=== PATIENT | female | born 1950 | race Caucasian/White ===

== ENCOUNTER 2017-06-21 06:12 | Inpatient (IN) | payer OTHER, MEDICARE ==
[2017-06-21] VITALS (15 sets, daily range): BP systolic 101–141; BP diastolic 50–75
[~2017-06-21] VITALS: Ht 154.9 cm; Wt 71.2 kg
[~2017-06-21 06:12] MED LIST: AMITRIPTYLINE 550 MG PO; AMITRIPTYLINE10 MG PO; ASPIRIN 81MG TA81 MG PO; ATORVASTATIN CA10 M1 PO; CALCIUM + D 6001 TAB PO; CLARITIN 10MG T10 MG PO; Cranberry400 MG PO; GABAPENTIN100 M1 PO; GABAPENTIN100 MG PO; HYDROCHLOROTHIA25 M1 PO; LISINOPRIL2.5 M1 PO; LORTAB 5/3251 TAB PO; METFORMIN 500M500 M1 PO; METFORMIN 500M500 MG PO; METOPROLOL 25 M25 MG PO; MULTIVITAMIN1 TA1 PO; PAXIL10 MG PO; PAXIL20 MG PO; PRAVACHOL20 MG PO; REQUIP 1 MG TABL1 MG PO; REQUIP2 MG PO; ROPINIROLE HYDRO1 M1 PO; TYLENOL WITH CO1 TA1 PO; VICODIN 5/500 T1 TAB PO; VOLTAREN75 MG PO
--- NOTE | 2017-06-21 09:34 | Anesthesia Record ---
Anesthesia Record Part I Total IV fluids: 90 EBL (ml): 20 Urine Output: 30 B/P: 126/71 % SaO2: 93 Pulse: 87 Resps: 15 Temp: 97 Patient is: Stable Stable to PACU at: 0927 at 0915
--- NOTE | 2017-06-21 09:35 | Anesthesia Record ---
Anesthesia Record Part II Discharge time: 956 Destination: Same day surgery PACU nurse assessment review? Yes Patient is: Stable Anesthesia complications? No at 0919
--- NOTE | 2017-06-21 12:59 | Operative Note ---
Procedure/Operative Record Date of Procedure: 06/21/17 Pre-op diagnosis: PCL tear, LEFT knee Status post LEFT total knee arthroplasty Post-op diagnosis: Same Procedure performed: revision knee arthroplasty, LEFT knee, polyethylene exchange only Surgeon: Devang Reyes Anesthesia: Gen. anesthetic plus regional block Indications: The patient is a 66-year-old female who is status post LEFT total knee arthroplasty several years ago with a cruciate retaining system by [employer]. She fell in December and incurred a trimalleolar LEFT ankle fracture and also a tear of her posterior cruciate ligament. She has continued to have instability secondary to the posterior cruciate ligament tear has improved significantly with wear of a posterior cruciate ligament stabilizing brace. Polyethylene exchange to a dish type tray to improve stabilization is indicated to improve ambulation, improved stabilization of the knee, and decreased risk of falling. Findings: Intraoperative examination under anesthesia showed a grossly unstable knee to posterior drawer testing consistent with a complete rupture of the posterior cruciate ligament. The total knee components were solidly attached and no evidence of loosening is present. Description of procedure: The patient was taken to the operating room and placed in the supine position. She had previously received a regional block. Gen. anesthesia was administered and the LEFT leg prepped and draped first with alcohol and then a formal preparation with chlorhexidine conducted. The entire team wore isolation suits. Room traffic was controlled. Preoperative antibiotics were given. Ioban was used to seal the operative site after marking pen had been used to outline the previous incision. The limb was exsanguinated and the tourniquet inflated to 325 mmHg. Tourniquet time was approximately one hour 15 minutes. Please see anesthesia or nursing notes for exact time. The knee was flexed and an incision made through the skin with a surgical knife. We carried this through the subcutaneous tissues but stops short of the extensor mechanism. A curvilinear incision was made to allow a medial parapatella approach. We marked the extensor mechanism to augment later closure. We resected scar tissue is needed and slid the patella medially flexing the knee and exposing the polyethylene. The polyethylene was removed and its size confirmed to be a 1-2 by 11 millimeter thick cruciate retaining polyethylene. We then irrigated all components and checked for loosening. All were found to be stable. We then selected the same size polyethylene in a dish type and placed it and seated it in position visually checking all edges accessible including the dovetails. The product rep was satisfied the polyethylene had seated as well. We cycled the knee through flexion and extension several times. This ensured polyethylene remain seated and fit patient had ensued. The patella button tracked nicely as well. We then irrigated and began closure using #1 Vicryl [id number] and running sutures for the extensor mechanism and 2-0 Vicryl for the subcutaneous tissue. A subcuticular 4-0 Monocryl was used for the skin followed by Dermabond, Steri-Strips, and dressings. The patient was then awakened and transported to the recovery room in satisfactory condition EBL (ml): 20 Implant: Polyethylene tibial insert, [employer] nephew, size 1-2 by 11 mm thick. This is a deep dish posterior cruciate ligament augmenting polyethylene. The other components which were not removed or exchanged our the cemented femur and tibial components as well as the polyethylene button. All components by [employer] nephew Complications: None Specimens: None at 0368
--- NOTE | 2017-06-21 23:00 | ACUTE CARE PROGRESS NOTE ---
Progress note Date: 06/21/17 Assessment: Post Op Check approx 2029....Pt awake, denies pain or distress. absent sensation left foot from regional block. Dressing intact. No evident complications VSS AF. Pedal pulses intact both feet. Impression: 1. Status post revision of total replacement of left knee Plan: anticipate discharge in a.m. at 4021
[2017-06-22 00:19] VITALS: BP 127/63
[2017-06-22 04:00] VITALS: BP 124/61
[2017-06-22 06:54] LABS: HEMOGLOBIN 13.3 g/dL (12.2-16.2); LYMPH # 2.7 K/mm3 (0.7-4.5); LYMPH % 24.7 % (10-50.0)
[2017-06-22 08:00] VITALS: BP 113/56
[2017-06-22 12:35] VITALS: BP 135/73
[2017-06-22 16:27] VITALS: BP 151/75
[2017-06-22 19:58] VITALS: BP 144/73
[2017-06-23 00:10] VITALS: BP 155/73
[2017-06-23 04:13] VITALS: BP 137/91
[2017-06-23 08:30] VITALS: BP 145/82
--- NOTE | 2017-06-23 13:19 | ACUTE CARE PROGRESS NOTE ---
Progress note Date: 06/23/17 Assessment: Stable status post revision. Much better pain control this morning. Dressing clean and dry. Neurovascular status intact. Vital signs stable afebrile. Labs within normal limits. Impression: 1. Status post revision of total replacement of left knee Plan: We will anticipate discharge later today if adequate pain control achieved. at 8556
[2017-06-23 16:30] VITALS: BP 181/95
--- NOTE | 2017-06-23 17:59 | ACUTE CARE PROGRESS NOTE ---
Progress note Date: 06/23/17 Assessment: still having significant pain requiring morphine IV. Dressing intact. Neuro intact. VSS AF. Impression: 1. Status post revision of total replacement of left knee Plan: Will keep overnight and attempt to transition to po Lortab tomorrow. Pt with inadequate pain control to be discharged today. at 0087
[2017-06-23 19:30] VITALS: BP 177/91
[2017-06-23 19:42] VITALS: BP 177/91
[2017-06-24 04:08] VITALS: BP 156/79
[2017-06-24 08:00] VITALS: BP 144/70
[2017-06-24 08:35] VITALS: BP 144/70
[2017-06-24] MEDS ORDERED: ASPIRIN325 M1 PO (09:49)
[2017-06-24] MEDS ORDERED: HYDROCODONE/APA1 TA8 PO (09:50)
[2017-06-24] MEDS ORDERED: CEPHALEXIN500 M3 PO (09:51)
--- NOTE | 2017-06-24 15:20 | ACUTE CARE PROGRESS NOTE ---
Progress note Date: 06/24/17 Assessment: feels much better.....incision clean/dry....sensory intact pedal pulses 2+ Impression: 1. Status post revision of total replacement of left knee Plan: home today at 6315
--- NOTE | 2017-06-24 15:24 | Discharge Summary Report ---
General Admit date: 07/19/17 Discharge date: 06/24/17 Admission Dx: pcl tear left Discharge Dx: same Hospital course: improved....noted significant pain after block wore off,now on po meds Condition at discharge: improved Problem List Medical Problems Ankle fracture, right Atrial tachycardia Closed bimalleolar fracture First degree alvarez of multiple sites Fracture of ankle, trimalleolar, left, closed Hypertension Post-operative pain Rib contusion Second degree alvarez of multiple sites Surgical Problems Status post revision of total replacement of left knee Allergies Coded Allergies: Penicillins (I-HIVES 06/21/17) promethazine ("MAKES CRAZY" EXACERBATES RLS 06/21/17) Med Rec DC summary Medications Reported Medications HYDROCHLOROTHIAZIDE (Hydrochlorothiazide) 25 MG PO DAILY PAROXETINE (Paroxetine HCl) 20 MG PO DAILY Atorvastatin Calcium 10 MG PO QHS #30 TAB ROPINIROLE HCL (Requip 1 Mg) 1 MG PO BID METFORMIN HCL (Metformin 500MG) 1,000 MG PO QAM METFORMIN HCL (Metformin 500MG) 1,500 MG PO QHS Gabapentin (Gabapentin 100MG) 300 MG PO QHS #360 CAPSULE Gabapentin (Gabapentin 100MG) 200 MG PO QAM Amitriptyline Hcl (Amitriptyline) 50 MG PO QHS #90 Discontinued Reported Medications ASPIRIN (Aspirin) 81 MG PO DAILY at 8578
[2017-06-24 16:00] VITALS: BP 144/70
== END 2017-06-24 16:05 | disposition home or self-care (01) | DRG 489 ==
LOC: 2ND 06:12 → EDSTATUS 07:30 → SDC 07:30 → 2ND 10:28
PROVIDERS: Orthopaedic Surgery
PROC: 0SPD09Z Removal of Liner from Left Knee Joint, Open Approach (ICD-10-PCS; principal; 2017-06-21 07:30)
PROC: 0SUW09Z Supplement Left Knee Joint, Tibial Surface with Liner, Open Approach (ICD-10-PCS; principal; 2017-06-21 07:30)
DX: T84.033A Mechanical loosening of internal left knee prosthetic joint, initial encounter (principal); I10 Essential (primary) hypertension; S83.522A Sprain of posterior cruciate ligament of left knee, initial encounter; Z91.81 History of falling
CPT/HCPCS: C1776; J2405